=== PATIENT | female | born 1995 | race Caucasian/White ===

== ENCOUNTER 2017-01-31 22:51 | Emergency (ER) | payer OTHER ==
[~2017-01-31] VITALS: Ht 162.6 cm; Wt 62.0 kg
[2017-01-31 23:02] VITALS: Ht 162.6 cm; Wt 62.0 kg
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
[2017-02-01] MEDS ORDERED: IBUP800T25 PO (00:08)
[2017-02-01 00:49] VITALS: BP 115/60; PULSE 75; RESP 20; TEMP 99.2
== END 2017-02-01 00:50 | disposition home or self-care (01) ==
LOC: E/R 22:51
DX: S29.001A Unspecified injury of muscle and tendon of front wall of thorax, initial encounter (principal); R07.9 Chest pain, unspecified; V49.50XA Passenger injured in collision with unspecified motor vehicles in traffic accident, initial encounter
CPT/HCPCS: 71010